=== PATIENT | male | born 1935 | race Caucasian/White ===

== ENCOUNTER 2018-07-18 08:25 | Day surgery (SDC) | payer MEDICARE ==
[2018-07-17 12:11] LABS: BASOPHILS % (AUTO) 0.5 % (0.0-5.0); EOSINOPHILS % (AUTO) 3.5 % (0.0-8.0); HEMATOCRIT 34.4 % (42-54); LYMPHOCYTES % (AUTO) 16.8 % (21.0-51.0); MEAN CORPUSCULAR HEMOGLOBIN 26.9 pg (27.0-33.0); MEAN CORPUSCULAR HGB CONC 32.1 g/dL (32.0-36.0); MONOCYTES % (AUTO) 14.7 % (3.0-13.0); NEUTROPHILS % (AUTO) 64.5 % (40.0-77.0); PLATELET COUNT (AUTO) 226 K/uL (130-400); RED CELL DISTRIBUTION WIDTH 15.7 % (11.0-15.5); WHITE BLOOD COUNT (AUTO) 6.7 K/uL (4.8-10.8)
[2018-07-17 12:19] LABS: CREATININE 1.1 mg/dL (0.5-1.5); POTASSIUM 4.9 mmol/L (3.5-5.1)
[2018-07-17 12:22] LABS: PROTHROMBIN TIME 10.5 SEC (9.6-11.6)
[2018-07-17 12:23] VITALS: BP 104/51
[2018-07-18] VITALS (14 sets, daily range): BP systolic 96–141; BP diastolic 45–59
[~2018-07-18] VITALS: Ht 160 cm; Wt 87.5 kg
[~2018-07-18 08:25] MED LIST: ALBU4TAB4 PO; AMIO200T5 PO; APIX5TAB PO; ATOR40TA69 PO; BACL10TA PO; BEPO10DR OU; DUTA0.5C17 PO; FINA5TAB41 PO; FOLI1TAB15 PO; GUAI600T50 PO; LANS30TA10 PO; LORA10TA7 PO; METO-408 PO; MOME13HF2 IH; OLME20TA22 PO; OXYC-586 PO; PREG100C PO; TADA5TAB PO; TAMS-1 PO
[2018-07-18] MEDS ORDERED: SODIUM CHLORIDE 0.9% 1000ML 1,000 ML IV ONE (08:53)
[2018-07-18] MEDS ORDERED: ATROPINE SULFATE 0.1 MG/ML 10 ML SYG IVP ONE (09:38)
[2018-07-18] MEDS ORDERED: PROPOFOL 10 MG/ML 20ML VIAL IV ONE (09:38)
[2018-07-18] MEDS ORDERED: SUCCINYLCHOLINE 200MG/10ML SYR ONE (09:38)
[2018-07-18] MEDS ORDERED: LIDOCAINE PF 2% 5ML ABBOJECT ONE (09:39)
[2018-07-18] MEDS ORDERED: PHENYLEPHRINE HCL 10 MG/ML 1ML VIAL IV ONE (09:40)
== END 2018-07-18 11:35 | disposition home or self-care (01) ==
LOC: DAH 08:25
PROVIDERS: ATTEND Internal Medicine Cardiovascular Disease
DX: I48.4 Atypical atrial flutter (principal); Z95.1 Presence of aortocoronary bypass graft; I48.91 Unspecified atrial fibrillation; Z68.31 Body mass index [BMI] 31.0-31.9, adult; Z79.899 Other long term (current) drug therapy; I25.10 Atherosclerotic heart disease of native coronary artery without angina pectoris; G89.29 Other chronic pain; M54.5 Low back pain; E78.5 Hyperlipidemia, unspecified; Z88.2 Allergy status to sulfonamides; Z88.0 Allergy status to penicillin; Z79.01 Long term (current) use of anticoagulants; J44.9 Chronic obstructive pulmonary disease, unspecified; I45.10 Unspecified right bundle-branch block
CPT/HCPCS: 36415; 80048; 85025; 85610; 85730; 92960; 93005 ×2; A4606; J0330; J0461; J2001; J2370; J2704; J7030; 99156